=== PATIENT | male | born 1955 | race Caucasian/White ===

== ENCOUNTER 2017-04-26 15:59 | Emergency (ER) | payer BC ==
[2017-04-26 16:14] VITALS: O2SAT 97
--- NOTE | 2017-04-26 16:36 | ERPHSYRPT ---
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 Triage Nursing Assessment: pt pink, warm, moist. [id number] laceration noted to left thumb. no bleeding at this time. 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 no active bleeding at present, patient is unable to move thumb in all direction. Occurred: just prior to arrival Method of Injury: incised Quality: constant Severity of Pain-Max: mild Severity of Pain-Current: mild Extremities Pain Location: thumb: left Modifying Factors: Improves With: nothing Associated Symptoms: none Allergies/Adverse Reactions: No Known Drug Allergies Allergy (Verified 02/20/14 23:44) Home Medications: Escitalopram Oxalate 10 mg [Lexapro 10 MG] 5 mg PO DAILY 02/19/14 [History] Methadone HCl 10 mg [DOLOPHINE 10MG Tablet] 10 mg PO TIDPRN PRN 02/20/14 [ History] Carvedilol 6.25 mg [Coreg 6.25 MG] 6.25 mg PO BID 04/26/17 [History] Hx Tetanus, Diphtheria Vaccination/Date Given: Yes (unknown) Hx Influenza Vaccination/Date Given: Yes Hx Pneumococcal Vaccination/Date Given: No Immunizations Up to Date: Yes - Past Medical History Pertinent Past Medical History: Yes Cardiac History: Hypertension Musculoskeletal History: Other 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 - Past Surgical History Past Surgical History: Yes Musculoskeletal: Orthopedic Surgery Other Surgical History: skin grafts - Social History Smoking Status: Former smoker Exposure to second hand smoke: No Drug Use: none Patient Lives Alone: Yes - Nursing Vital Signs Nursing Vital Signs: Initial Vital Signs Temperature 99.0 F Temperature Source Oral Pulse Rate 62 Respiratory Rate 20 Blood Pressure [] 129/81 Pain Intensity 0 - Physical Exam General Appearance: no apparent distress Hand Exam: deformity, laceration, limited ROM (left thumb, unable to extend), soft tissue tenderness, swelling SpO2: 97 - Course Nursing assessment & vital signs reviewed: Yes - Radiology Exams Hand X-ray Interpretation: Reviewed by me, Negative, No Fracture, No Subluxation Ordered Tests: Active Orders 24 hr Category Date Time Status HAND (MINIMUM 3 VIEWS) Stat Exams 04/26/17 16:09 Taken Medication Summary Discontinued Medications Generic Name Dose Route Start Last Admin Trade Name Warren PRN Reason Stop Dose Admin Diphtheria/Tetanus/Acell Pertussis 0.5 ml 04/26/17 17:01 04/26/17 17:02 Adacel Vial IM 04/26/17 17:02 0.5 ml .ONCE ONE Administration Diphtheria/Tetanus/Acell Pertussis Confirm 04/26/17 17:01 Adacel Vial Administered 04/26/17 17:02 Dose 0.5 ml IM .STK-MED ONE Ketorolac Tromethamine Confirm 04/26/17 16:39 Toradol 30 Mg Injection Administered 04/26/17 16:40 Dose 60 mg .ROUTE .STK-MED ONE Ketorolac Tromethamine 60 mg 04/26/17 16:40 04/26/17 16:42 Toradol 30 Mg Injection IM 04/26/17 16:41 60 mg STAT ONE Administration - Progress Progress: unchanged Discussed with Dr.: Other (Dr Harper at [facility] trauma center- Patient is going to [facility] ER via private car,) Will see patient in: other ([facility] ER) Counseled pt/family regarding: diagnosis, need for follow-up - Departure Time of Disposition: 17:08 Departure Disposition: Transfer (to [facility] for further care) Clinical Impression: Injury of tendon of left hand Qualifiers: Encounter type: initial encounter Qualified Code(s): S66.902A - Unspecified injury of unspecified muscle, fascia and tendon at wrist and hand level, left hand, initial encounter Condition: Stable Critical Care Time: Yes Critical Care Time(excluding separately billable procedures): 30-74 minutes Referrals: CHARLES LI [Primary Care Provider] - Instructions: Care for a Laceration After Repair
[2017-04-26] MEDS ORDERED: TORAdol 30 mg Injection ONE (16:39)
[2017-04-26] MEDS ORDERED: TORAdol 30 mg Injection IM ONE (16:40)
[2017-04-26] MEDS ORDERED: Adacel Vial IM ONE ×2 (17:01)
[2017-04-26] MEDS ORDERED: KEFZOL 1 GM IM ONE (17:16)
[2017-04-26] MEDS ORDERED: KEFZOL 1 GM ONE (17:17)
[2017-04-26 17:29] VITALS: BP 120/70; PULSE 56
--- NOTE | 2017-04-26 20:56 | XRAY ---
Indication: Thumb laceration. Comparison: None 3 views of the left hand demonstrates mild first MCP degenerative changes and adjacent soft tissue laceration. No other bony, articular, or soft tissue abnormalities.
== END 2017-04-26 17:29 | disposition short-term general hospital (02) ==
LOC: ED 15:59
DX: S66.822A Laceration of other specified muscles, fascia and tendons at wrist and hand level, left hand, initial encounter (principal); W31.89XA Contact with other specified machinery, initial encounter
CPT/HCPCS: 73130; 90471; 90715; 96372; 99285; J0690; J1885

== ENCOUNTER 2021-02-21 19:04 | Emergency (ER) | payer MEDICARE ==
[2021-02-21] MEDS ORDERED: D50W 50 ml Abboject IV ONE ×2 (19:12→19:13)
[2021-02-21 19:42] LABS: Absolute Neutrophil Ct (ANC) 4.95 (1.4-6.9); BASOPHIL % 0.4 % (0.0-0.4); Basophil (Absolute #) 0.03 (0-0.4); Eosinophil % 0.5 % (0.00-5.0); Eosinophil (Absolute #) 0.04 (0-0.5); Hematocrit 47.6 % (42-50); Hemoglobin 15.8 gm/dl (12.5-18.0); Lymphocyte (Absolute #) 1.99 (1.0-4.6); Lymphocytes % 25.7 % (24.0-44.0); Mean Cell Volume 87.7 fl (78-100); Mean Corpuscular Hemoglobin 29.1 pg (26-32); Mean Corpuscular Hgb Concent. 33.2 g/dl (32-36); Mean Platelet Volume 10.2 fl (7.5-11.0); Monocyte (Absolute #) 0.74 (0.0-1.3); Monocytes % 9.5 % (0.0-12.0); Neutrophil % 63.9 % (36.0-66.0); Platelet Count 248 K/mm3 (150-450); Red Blood Count 5.43 M/mm3 (4.1-5.6); White Blood Count 7.8 K/mm3 (4.0-10.5)
[2021-02-21 20:11] LABS: ALBUMIN 4.9 g/dL (3.5-5.0); ALKALINE PHOSPHATASE 97 U/L (38-126); ANION GAP 19.3 MEQ/L (5-15); BLOOD UREA NITROGEN 12 mg/dL (9-20); CHLORIDE 101 mmol/L (98-107); Calcium 10.1 mg/dL (8.4-10.2); Carbon Dioxide 23 mmol/L (22-30); Creatinine 1 0.77 mg/dL (0.66-1.25); EST GLOMERULAR FILTRATION RATE > 60.0 ML/MIN; ETHYL ALCOHOL < 10 mg/dL (0-10); Glucose 60 mg/dL (74-106); MAGNESIUM 2.3 mg/dL (1.6-2.3); NT PRO BNP 120 pg/mL (0-900); Potassium 3.1 mmol/L (3.5-5.1); SGOT/AST 27 U/L (17-59); SGPT/ALT 36 U/L (0-50); SODIUM 140 mmol/L (137-145); Total Protein 7.7 g/dL (6.3-8.2)
[2021-02-21 20:32] LABS: Appearance SLIGHTLY CLOUDY (CLEAR); Bilirubin NEGATIVE (NEGATIVE); Blood SMALL Ery/ul (0-5); Glucose NEGATIVE (NEGATIVE); Ketones NEGATIVE (NEGATIVE); Leukocyte Esterase NEGATIVE (NEGATIVE); Mucus SLIGHT /HPF (NEGATIVE); Nitrite NEGATIVE (NEGATIVE); Protein,Urine Dip 30 (Negative); Urobilinogen NEGATIVE mg/dL (0-1); WBC 0-2 /HPF (0-5)
--- NOTE | 2021-02-21 20:44 | ERPHSYRPT ---
- History of Present Illness Time Seen by Provider: 02/21/21 19:10 Source: patient Exam Limitations: no limitations Patient Subjective Stated Complaint: "I think i had a seizure." Triage Nursing Assessment: EMS reported a near syncopal episode with seizure like activity per the on scene. EMS reported confusion upon arrival with improvement post oral glucose. Patient presented alert et oriented with skin pale/diaphoretic. Denied headache, dizziness, visual/auditory disturbances, chest pain, shortness of breath. reported that the patient was alert at home when he had a near syncopal episode and his body shook. She said the patient fell backwards into the couch and did not strike his head or fully lose consciousness. Head atraumatic normocephalic. Pupils 3mm brisk direct/consensual reation to light. Neck supple non-tender without JVD/bruits/thrills. Symmetrical chest expansion. Heart tones S1/S2 regular rate and rhythm. Lungs vesicular with adequate airflow. Abdomen soft non-distened without palpable masses. Peripheral pulses +2 bilateral. No noted unilateral neurological deficits. Physician History: Patient is a 66-year-old male presents to our emergency department via EMS for evaluation of seizure. Patient was at home with his significant other. She states that patient jerked backwards became unresponsive and started to shake. Patient later had drool coming out on the side of his mouth. She called 911. Upon their arrival patient was hypoglycemic at 56. Patient was somewhat confuse d. Patient states he had a seizure back in July. Patient went to the hospital at that time. He was worked up and discharged home. Patient states he does not know the cause of the seizure and at this point neither does his primary care doctor according to patient. Patient otherwise feels well. No associated chest pain or shortness of breath. No nausea vomiting or diaphoresis. Patient denies fevers no neck pain photophobia. Patient has no meningeal signs. Patient states he drinks vodka regularly but denies being an alcoholic. CAGE questions negative. Case Timing/Duration: today Severity: moderate Character of Deficits: other (Patient confused/postictal.) Deficits: no difficulties Baseline/Normal Cognition: alert oriented x 3 Current Cognition: alert oriented x 3 (Patient mental status significantly improved now versus status upon EMS initial evaluation.) Baseline Gait: walks w/o assistance Associated Symptoms: denies symptoms Allergies/Adverse Reactions: No Known Drug Allergies Allergy (Verified 02/21/21 19:19) Home Medications: Escitalopram Oxalate 10 mg [Lexapro 10 MG] 5 mg PO DAILY 02/19/14 [History] Methadone HCl 10 mg [DOLOPHINE 10MG Tablet] 10 mg PO TIDPRN PRN 02/20/14 [History] Apixaban [Eliquis] 1 tab PO BID 02/21/21 [History] Atorvastatin Calcium [Lipitor 40Mg] 1 tab PO DAILY 02/21/21 [History] Losartan Potassium 50 mg [Cozaar 50 MG] 1 tab PO DAILY 02/21/21 [History] Hx Tetanus, Diphtheria Vaccination/Date Given: Yes (unknown) Hx Influenza Vaccination/Date Given: Yes Hx Pneumococcal Vaccination/Date Given: No Travel Risk - International Travel Have you traveled outside of the country in past 3 weeks: No - Coronavirus Screening Are you exhibiting any of the following symptoms?: No Close contact with a COVID-19 positive Pt in past 14-21 Days: No - Vaccine Status Have you recieved a Covid-19 vaccination: Yes 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: [employer] - Vaccination Dates Date of 2cond Vaccination (if applicable): 02/04/21 - Review of Systems Constitutional: No Symptoms, No Fever, No Chills Eyes: No Symptoms Ears, Nose, & Throat: No Symptoms Respiratory: No Symptoms, No Cough, No Dyspnea Cardiac: No Symptoms, No Chest Pain, No Edema, No Syncope Abdominal/Gastrointestinal: No Symptoms, No Abdominal Pain, No Nausea, No Vomiting, No Diarrhea Genitourinary Symptoms: No Symptoms, No Dysuria Musculoskeletal: No Symptoms, No Back Pain, No Neck Pain Skin: No Symptoms, No Rash Neurological: No Symptoms, No Dizziness, No Focal Weakness, No Sensory Changes Psychological: No Symptoms Endocrine: No Symptoms Hematologic/Lymphatic: No Symptoms Immunological/Allergic: No Symptoms All Other Systems: Reviewed and Negative - Past Medical History Pertinent Past Medical History: Yes Cardiac History: High Cholesterol, Hypertension Respiratory History: Pulmonary Embolism Musculoskeletal History: Other 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 - Past Surgical History Past Surgical History: Yes Musculoskeletal: Orthopedic Surgery Other Surgical History: skin grafts - Social History Smoking Status: Former smoker Exposure to second hand smoke: No Drug Use: none Patient Lives Alone: Yes - Nursing Vital Signs Nursing Vital Signs: Initial Vital Signs Temperature 98.8 F 02/21/21 19:04 Pulse Rate 84 02/21/21 19:04 Respiratory Rate 16 02/21/21 19:04 Blood Pressure 130/70 02/21/21 19:04 O2 Sat by Pulse Oximetry 95 02/21/21 19:04 Pain Scale Pain Intensity 0 - [place] Coma Scale Best Eye Response ([place]): (4) open spontaneously Best Verbal Response ([place]): (5) oriented Best Motor Response ([place]): (6) obeys commands Eleanor Total: 15 - Physical Exam General Appearance: no apparent distress, alert Eye Exam: bilateral eye: normal inspection, PERRL, EOMI Ears, Nose, Throat Exam: normal ENT inspection, moist mucous membranes Neck Exam: normal inspection, non-tender, supple Respiratory: normal breath sounds, lungs clear, airway intact, No respiratory distress Cardiovascular: regular rate/rhythm, No edema Gastrointestinal: soft, normal bowel sounds, No tenderness, No distention Back Exam: normal inspection Extremity Exam: normal inspection, normal range of motion, pelvis stable, No pedal edema 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, 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 Exam: normal hearing, normal speech, PERRL, tongue midline, No abnormal eye position, No abnormal gag reflex, No abnormal pupil position, No abnormal speech, No facial asymmetry, No facial droop, No facial paresthesias, No facial weakness, No gaze palsy, No hearing deficit (R), No hearing deficit (L), No tongue deviation to R, No tongue deviation to L Coordination/Gait: normal finger to nose, normal gait, normal cerebellar function Motor/Sensory: no motor deficit Skin Exam: normal color, warm, dry, No rash SpO2 Interpretation: normal SpO2: 98 O2 Delivery: Room Air - Course Nursing assessment & vital signs reviewed: Yes EKG Interpreted by Me: RATE (76), Sinus Rhythm, NORMAL AXIS, NORMAL INTERVALS - CT Exams Head CT Interpretation: Tele-radiologist Report (No comparisons. Negative CT head.) Ordered Tests: Active Orders 24 hr Category Date Time Status Jig Filler STAT Care 02/21/21 19:31 Active EKG-ER Only STAT Care 02/21/21 19:30 Active IV Insertion STAT Care 02/21/21 19:30 Active Pulse Oximetry (ED) STAT Care 02/21/21 19:30 Active HEAD WITHOUT CONTRAST [CT] Stat Exams 02/21/21 19:48 Taken BLOOD CULTURE Stat Lab 02/21/21 19:50 Received CBC W DIFF Stat Lab 02/21/21 19:15 Completed CMP Stat Lab 02/21/21 19:15 Completed D-DIMER QUANTITATIVE Stat Lab 02/21/21 20:00 Completed ETHYL ALCOHOL Stat Lab 02/21/21 19:15 Completed Lactic Acid Stat Lab 02/21/21 19:45 Completed MAGNESIUM Stat Lab 02/21/21 19:15 Completed NT PRO BNP Stat Lab 02/21/21 19:15 Completed POCT GLUCOSE Stat Lab 02/21/21 20:09 Completed TROPONIN Q3H Lab 02/21/21 19:15 Completed TROPONIN Q3H Lab 02/21/21 22:45 Ordered TROPONIN Q3H Lab 02/22/21 01:45 Ordered TROPONIN Q3H Lab 02/22/21 04:45 Ordered TROPONIN Q3H Lab 02/22/21 07:45 Ordered UA W/RFX UR CULTURE Stat Lab 02/21/21 19:54 Received Urine Triage Profile Stat Lab 02/21/21 19:54 Received Medication Summary Discontinued Medications Generic Name Dose Route Start Last Admin Trade Name Freq PRN Reason Stop Dose Admin Dextrose 25 ml 02/21/21 19:12 02/21/21 19:17 D50w 50 Ml Abboject IV 02/21/21 19:13 25 ml STAT ONE Administration Dextrose Confirm 02/21/21 19:13 D50w 50 Ml Abboject Administered 02/21/21 19:14 Dose 50 ml IV .Spire [place]-Lexdir ONE Lab/Rad Data: Laboratory Result Diagrams 02/21/21 19:15 02/21/21 19:15 Laboratory Results 02/21/21 02/21/21 02/21/21 Range/Units 20:09 20:00 19:45 WBC (4.0-10.5) K/mm3 RBC (4.1-5.6) M/mm3 Hgb (12.5-18.0) gm/dl Hct (42-50) % MCV (78-100) fl MCH (26-32) pg MCHC (32-36) g/dl RDW (11.5-14.0) % Plt Count (150-450) K/mm3 MPV (7.5-11.0) fl Gran % (36.0-66.0) % Eos # (Auto) (0-0.5) Absolute Lymphs (auto) (1.0-4.6) Absolute Monos (auto) (0.0-1.3) Lymphocytes % (24.0-44.0) % Monocytes % (0.0-12.0) % Eosinophils % (0.00-5.0) % Basophils % (0.0-0.4) % Absolute Granulocytes (1.4-6.9) Basophils # (0-0.4) D-Dimer < 215 L (215-500) ng/mL Sodium (137-145) mmol/L Potassium (3.5-5.1) mmol/L Chloride (98-107) mmol/L Carbon Dioxide (22-30) mmol/L Anion Gap (5-15) MEQ/L BUN (9-20) mg/dL Creatinine (0.66-1.25) mg/dL Estimated GFR ML/MIN Glucose (74-106) mg/dL POC Glucometer 72 L (74 to 106) mg/dL Lactic Acid 8.4 H (0.4-2.0) Calcium (8.4-10.2) mg/dL Magnesium (1.6-2.3) mg/dL Total Bilirubin (0.2-1.3) mg/dL AST (17-59) U/L ALT (0-50) U/L Alkaline Phosphatase (38-126) U/L Troponin I (0.000-0.034) ng/mL NT-Pro-B Natriuret Pep (0-900) pg/mL Serum Total Protein (6.3-8.2) g/dL Albumin (3.5-5.0) g/dL Ethyl Alcohol (0-10) mg/dL 02/21/21 02/21/21 02/21/21 Range/Units 19:15 19:15 19:15 WBC 7.8 (4.0-10.5) K/mm3 RBC 5.43 (4.1-5.6) M/mm3 Hgb 15.8 (12.5-18.0) gm/dl Hct 47.6 (42-50) % MCV 87.7 (78-100) fl MCH 29.1 (26-32) pg MCHC 33.2 (32-36) g/dl RDW 13.0 (11.5-14.0) % Plt Count 248 (150-450) K/mm3 MPV 10.2 (7.5-11.0) fl Gran % 63.9 (36.0-66.0) % Eos # (Auto) 0.04 (0-0.5) Absolute Lymphs (auto) 1.99 (1.0-4.6) Absolute Monos (auto) 0.74 (0.0-1.3) Lymphocytes % 25.7 (24.0-44.0) % Monocytes % 9.5 (0.0-12.0) % Eosinophils % 0.5 (0.00-5.0) % Basophils % 0.4 (0.0-0.4) % Absolute Granulocytes 4.95 (1.4-6.9) Basophils # 0.03 (0-0.4) D-Dimer (215-500) ng/mL Sodium 140 (137-145) mmol/L Potassium 3.1 L (3.5-5.1) mmol/L Chloride 101 (98-107) mmol/L Carbon Dioxide 23 (22-30) mmol/L Anion Gap 19.3 H (5-15) MEQ/L BUN 12 (9-20) mg/dL Creatinine 0.77 (0.66-1.25) mg/dL Estimated GFR > 60.0 ML/MIN Glucose 60 L (74-106) mg/dL POC Glucometer (74 to 106) mg/dL Lactic Acid (0.4-2.0) Calcium 10.1 (8.4-10.2) mg/dL Magnesium 2.3 (1.6-2.3) mg/dL Total Bilirubin 1.30 (0.2-1.3) mg/dL AST 27 (17-59) U/L ALT 36 (0-50) U/L Alkaline Phosphatase 97 (38-126) U/L Troponin I < 0.012 (0.000-0.034) ng/mL NT-Pro-B Natriuret Pep 120 (0-900) pg/mL Serum Total Protein 7.7 (6.3-8.2) g/dL Albumin 4.9 (3.5-5.0) g/dL Ethyl Alcohol < 10 (0-10) mg/dL - Progress Progress: improved Progress Note: Patient reassessed. Neurologic status back to patient's baseline. CT head negative. Work-up reveals hypoglycemia. Patient also has hypokalemia. These findings may be due to excessive alcohol use. D-dimer negative. current alcohol is negative. We advised admission for further evaluation of seizure and hypoglycemia. Patient refused. 02/21/21 20:51 Patient is of sound mind. Patient is appropriate to make informed and independent medical decisions. Patient understands that leaving AGAINST MEDICAL ADVICE can result in delayed diagnosis, increased risk of morbidity, mortality, short and long-term disability including . In spite of these risks, patient has decided to leave AGAINST MEDICAL ADVICE. Patient understands that he may return to our ED at any point if he or she reconsiders. Patient agrees to follow-up with his or her primary care doctor within 48 hours for reevaluation. Patient voices no other complaints or concerns at this time. We will release patient AGAINST MEDICAL ADVICE per their request. 02/21/21 20:54 02/21/21 20:55 Counseled pt/family regarding: lab results, diagnosis, need for follow-up, rad results - Departure Departure Disposition: AMA Clinical Impression: Hypokalemia, Hypoglycemia, Seizure, High anion gap metabolic acidosis, Lactic acidosis Condition: Stable Critical Care Time: No Referrals: TYRONE HAMEED [Primary Care Provider] - Additional Instructions: Discharge/Care Plan GELACIO MENDES was seen on 02/21/21 in the Emergency Room. The patient was counseled regarding Diagnosis,Lab results, Imaging studies, need for follow up a nd when to return to the Emergency Room. Prescriptions given: Discharge Note I have spoken with the patient and/or caregivers. I have explained the patient's condition, diagnosis and treatment plan based on the information available to me at this time. I have answered the patient's and/or caregiver's questions and addressed any concerns. The patient and/or caregivers have as good understanding of the patient's diagnosis, condition and treatment plan as can be expected at this point. The vital signs have been stable. The patient's condition is stable and appropriate for discharge from the emergency department. The patient will pursue further outpatient evaluation with the primary care physician or other designated or consulting physician as outlined in the discharge instructions. The patient and/or caregivers are agreeable to this plan of care and follow-up instructions have been explained in detail. The patient and/or caregivers have received these instruction. The patient/and or caregivers are aware that any significant change in condition or worsening of symptoms should prompt an immediate return to this or the closest emergency department or call 911.
[2021-02-21 20:53] LABS: Amphetamine,Urine NEGATIVE (NEGATIVE); Barbiturate,Urine NEGATIVE (NEGATIVE); Benzodiazepine,Urine POSITIVE (NEGATIVE); Cocaine,Urine NEGATIVE (NEGATIVE); Methadone,Urine POSITIVE (NEGATIVE); Opiate,Urine NEGATIVE (NEGATIVE); PCP,Urine NEGATIVE (NEGATIVE); THC,Urine NEGATIVE (NEGATIVE)
[2021-02-21] MEDS ORDERED: Klor Con 10 MEQ PO ONE ×2 (20:53→21:02)
[2021-02-21 21:29] VITALS: BP 138/86; PULSE 81; O2SAT 95
--- NOTE | 2021-02-22 08:40 | XRAY ---
Indication: Acute mental status change. Possible seizure with head injury. Multiple contiguous axial images obtained through the head without contrast. Comparison: None Age-appropriate global atrophy. No acute intracranial hemorrhage, abnormal extra-axial fluid collection, or mass effect. Fourth ventricle is midline without hydrocephalus. Gordon-white matter differentiation preserved. Bony calvarium intact. Minimal mucosal thickening of both ethmoid and right maxillary sinuses. Mastoid air cells are clear. Impression: Minimal paranasal sinus disease. Remaining CT head without contrast exam is negative.
== END 2021-02-21 21:17 | disposition left against medical advice (07) ==
LOC: ED 19:04
DX: E87.6 Hypokalemia (principal); E16.2 Hypoglycemia, unspecified; R56.9 Unspecified convulsions; E87.2 Acidosis; Z79.899 Other long term (current) drug therapy; I10 Essential (primary) hypertension; E78.00 Pure hypercholesterolemia, unspecified; Z86.718 Personal history of other venous thrombosis and embolism
CPT/HCPCS: 36000; 36415; 70450; 80053; 80307; 81001; 82947; 83605; 83735; 83880; 84484; 85025; 85379; 87040; 93005; 93041; 94760; 96374; 99284; G0480; A9270-GY

== ENCOUNTER 2025-08-02 15:42 | Emergency (ER) | payer MEDICARE ==
--- NOTE | 2025-08-02 16:02 | ERPHSYRPT ---
- History of Present Illness Time Seen by Provider: 08/02/25 15:55 Source: patient Physician History: Patient presents for 2 weeks of intermittent sharp or pressure type pain in his right lower quadrant. No flank pain. He reports a history of stones and passed a stone several days ago. He reports he had difficulty voiding that day with some blood in his urine. He denies any urinary symptoms at this time. He has had no nausea vomiting or diarrhea. No fever or chills. Had a good appetite. He is presently pain-free on arrival. Allergies/Adverse Reactions: No Known Drug Allergies Allergy (Verified 08/02/25 16:05) Home Medications: Escitalopram Oxalate [Lexapro 10 MG] 5 mg PO DAILY 02/19/14 [History] Methadone HCl 10 mg [DOLOPHINE 10MG Tablet] 10 mg PO TID 02/20/14 [History] Apixaban [Eliquis] 1 tab PO BID 02/21/21 [History] Atorvastatin Calcium [Lipitor 40Mg] 1 tab PO DAILY 02/21/21 [History] Losartan Potassium 50 mg [Cozaar 50 MG] 1 tab PO DAILY 02/21/21 [History] Hx Tetanus, Diphtheria Vaccination/Date Given: Yes (unknown) Hx Influenza Vaccination/Date Given: Yes Hx Pneumococcal Vaccination/Date Given: No - Review of Systems Constitutional: No Fever, No Chills Eyes: No Symptoms Ears, Nose, & Throat: No Symptoms Respiratory: No Cough, No Dyspnea Cardiac: No Chest Pain, No Edema, No Syncope Abdominal/Gastrointestinal: Abdominal Pain, No Nausea, No Vomiting, No Diarrhea Genitourinary Symptoms: Hematuria, No Dysuria, No Frequency, No Urinary Retention, No Flank Pain Musculoskeletal: No Back Pain, No Neck Pain Skin: No Rash Neurological: No Dizziness, No Focal Weakness, No Sensory Changes Psychological: No Symptoms Endocrine: No Symptoms All Other Systems: Reviewed and Negative - Past Medical History Pertinent Past Medical History: Yes Cardiac History: High Cholesterol, Hypertension Respiratory History: Pulmonary Embolism Musculoskeletal History: Other 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 - Past Surgical History Past Surgical History: Yes Musculoskeletal: Orthopedic Surgery Other Surgical History: skin grafts - Social History Smoking Status: Former smoker Exposure to second hand smoke: No Drug Use: none Patient Lives Alone: Yes - Nursing Vital Signs Nursing Vital Signs: Initial Vital Signs Temperature 97 F 08/02/25 15:43 Pulse Rate 82 08/02/25 15:43 Respiratory Rate 16 08/02/25 15:43 Blood Pressure 101/71 08/02/25 15:43 O2 Sat by Pulse Oximetry 100 08/02/25 15:43 Pain Scale Pain Intensity 7 - Physical Exam General Appearance: no apparent distress Respiratory Exam: normal breath sounds Cardiovascular Exam: regular rate/rhythm, normal heart sounds Gastrointestinal/Abdomen Exam: soft, other (Forts prior pain was right low pelvis but is nontender and without symptoms on arrival), No tenderness, No distention, No mass, No organomegaly Back Exam: normal inspection Extremity Exam: normal inspection Neurologic Exam: alert, oriented x 3 Lymphatic Exam: No adenopathy SpO2 Interpretation: normal Ordered Tests: Active Orders 24 hr Category Date Time Status ABDOMEN AND PELVIS W/0 CONTRAS [CT] Stat Exams 08/02/25 16:03 Completed BMP Stat Lab 08/02/25 16:00 Completed CBC W DIFF Stat Lab 08/02/25 16:00 Completed UA W/RFX UR CULTURE Stat Lab 08/02/25 17:15 Completed Lab/Rad Data: Laboratory Result Diagrams 08/02/25 16:00 08/02/25 16:00 Laboratory Results 08/02/25 08/02/25 08/02/25 Range/Units 17:15 16:00 16:00 WBC 7.7 (4.23-9.07) x10^3/uL RBC 4.37 L (4.63-6.08) x10^6/uL Hgb 12.8 L (13.7-17.5) g/dL Hct 38.7 L (40.1-51.0) % MCV 88.6 (79.0-92.2) fL MCH 29.3 (25.7-32.2) pg MCHC 33.1 (32.3-36.5) g/dL RDW 12.8 (11.6-14.4) % Plt Count 226 (163-337) x10^3/uL MPV 10.9 (9.4-12.4) fL Gran % 69.4 H (34.0-67.9) % Immature Gran % (Auto) 0.4 (0.001-0.429) % Nucleat RBC Rel Count 0.0 (0.00-0.2) % Eos # (Auto) 0.22 (0.04-0.54) x10^3/uL Immature Gran # (Auto) 0.03 (0.001-0.031) x10^3u/L Absolute Lymphs (auto) 1.66 (1.32-3.57) x10^3/uL Absolute Monos (auto) 0.37 (0.30-0.82) x10^3/uL Absolute Nucleated RBC 0.00 (0.00-0.012) x10^3u/L Lymphocytes % 21.6 L (21.8-53.1) % Monocytes % 4.8 L (5.3-12.2) % Eosinophils % 2.9 (0.8-7.0) % Basophils % 0.9 (0.2-1.2) % Absolute Granulocytes 5.35 (1.78-5.38) x10^3/uL Basophils # 0.07 (0.01-0.08) x10^3/uL Sodium 140 (135-145) mmol/L Potassium 3.4 L (3.5-5.1) mmol/L Chloride 107 (98-107) mmol/L Carbon Dioxide 24 (22-30) mmol/L Anion Gap 12.4 (5-15) MEQ/L BUN 13 (9-20) mg/dL Creatinine 0.82 (0.66-1.25) mg/dL Estimated GFR 95.7 ML/MIN Glucose 107 H (74-106) mg/dL Calcium 9.1 (8.4-10.2) mg/dL Urine Color Yellow (Yellow) Urine Appearance Clear (Clear) Urine pH 5.5 (4.6-8.0) Ur Specific [place] 1.015 (1.005-1.030) Urine Protein Negative (Negative) Urine Glucose (UA) Negative (Negative) mg/dL Urine Ketones Negative (Negative) Urine Blood Negative (Negative) Urine Nitrite Negative (Negative) Urine Bilirubin Negative (Negative) Urine Urobilinogen 0.2 (0.2) mg/dL Ur Leukocyte Esterase Negative (Negative) U Hyaline Cast (Auto) NONE SEEN (0-2) /LPF Urine Microscopic RBC 0-2 (0-5) /HPF Urine Microscopic WBC 0-2 (0-5) /HPF Ur Epithelial Cells None Seen (None Seen) /HPF Urine Bacteria None Seen (None Seen) /HPF Urine Culture Reflexed NO (NO) - Progress Progress: improved Progress Note: 08/02/25 17:18 [facility] [address] [facility], [address] [place], [place] [address] Name: GELACIO MENDES Attending Physician: CRISTELA SCHWARTZ IMAGING REPORT : 1955 Age: 70 Sex: M Location: ED Report #: [id number] Exam Date: 08/02/25 Status: REG ER Radiology #: Procedures: CT/ABDOMEN AND PELVIS W/0 CONTRAS Indication: Right lower pain 2 weeks. Multiple contiguous axial images obtained through the abdomen and pelvis without contrast using renal stone protocol. Comparison: November 28, 2019 Lung bases clear. Heart not enlarged. Left lower renal calyx demonstrates 4 new micro-calculi, largest 4 mm. No other renal calculus or evidence for obstructive uropathy in either system. Noncontrasted stomach and bowel loops appear nonobstructed again with normal appendix. Right lower quadrant demonstrates new tiny mesenteric nodes with stranding favoring adenitis. Again mildly distended gallbladder with multiple small cholesterol gallstones increased in number. Also new gallbladder sludge in the dependent portion. No free fluid/air. Remaining liver, gallbladder, pancreas, spleen, adrenal glands, kidneys, ureters, and bladder are unremarkable for noncontrast exam. Again minimal aortoiliac calcifications without AAA. Osseous structures intact again with minimal/mild degenerative changes throughout spine. New small fatty left inguinal hernia and new moderate fluid-filled right inguinal hernia. Impression: 1. New nonobstructing left renal micro-calculi. 2. New tiny right lower quadrant mesenteric nodes with stranding favoring mesenteric adenitis. 3. Increasing small cholesterol gallstones with new gallbladder sludge. Sonogram may yield further information if there remains clinical concern. 4. New fatty left inguinal and new fluid-filled right inguinal hernias. 5. Incidental chronic findings including arteriosclerotic disease and multilevel degenerative spondylosis. Reported by: DEBBI NEVAREZ DO Signed by: DEBBI NEVAREZ DO Signed date/time: 08/02/25 0387 Work did not show concerning cause for symptoms. No concerning findings on CT scan on the right side, possible mesenteric adenitis noted - Departure Departure Disposition: Home Clinical Impression: Mesenteric adenitis Condition: Good Critical Care Time: No Referrals: TYRONE HAMEED [Primary Care Provider, UNKNOWN] - Follow up/PCP as directed Instructions: Abdominal pain Additional Instructions: Small amount of inflammation around the bowel. This likely will improve on its own without specific therapy. You can add ibuprofen or Aleve to your pain regimen that you take at this time. There is no evidence of any infection or stones. Follow-up with your provider if not improved this week. For worsening symptoms such as fever vomiting or concerns
[2025-08-02 16:11] LABS: BASOPHIL % 0.9 % (0.2-1.2); Basophil (Absolute #) 0.07 x10^3/uL (0.01-0.08); Eosinophil (Absolute #) 0.22 x10^3/uL (0.04-0.54); Hematocrit 38.7 % (40.1-51.0); Hemoglobin 12.8 g/dL (13.7-17.5); IMMATURE GRAN # 0.03 x10^3u/L (0.001-0.031); IMMATURE GRAN % 0.4 % (0.001-0.429); Lymphocyte (Absolute #) 1.66 x10^3/uL (1.32-3.57); Mean Corpuscular Hemoglobin 29.3 pg (25.7-32.2); Mean Corpuscular Hgb Concent. 33.1 g/dL (32.3-36.5); Monocyte (Absolute #) 0.37 x10^3/uL (0.30-0.82); NUCLEATED RBC # 0.00 x10^3u/L (0.00-0.012); NUCLEATED RBC % 0.0 % (0.00-0.2); Platelet Count 226 x10^3/uL (163-337); Red Blood Count 4.37 x10^6/uL (4.63-6.08); White Blood Count 7.7 x10^3/uL (4.23-9.07)
[2025-08-02 16:28] LABS: Calcium 9.1 mg/dL (8.4-10.2); Carbon Dioxide 24.0 mmol/L (22-30); Creatinine 1 0.82 mg/dL (0.66-1.25); EST GLOMERULAR FILTRATION RATE 95.7 ML/MIN; Glucose 107.0 mg/dL (74-106); Potassium 3.4 mmol/L (3.5-5.1)
[2025-08-02 16:38] VITALS: TEMP 97
--- NOTE | 2025-08-02 17:10 | XRAY ---
Indication: Right lower pain 2 weeks. Multiple contiguous axial images obtained through the abdomen and pelvis without contrast using renal stone protocol. Comparison: November 28, 2019 Lung bases clear. Heart not enlarged. Left lower renal calyx demonstrates 4 new micro-calculi, largest 4 mm. No other renal calculus or evidence for obstructive uropathy in either system. Noncontrasted stomach and bowel loops appear nonobstructed again with normal appendix. Right lower quadrant demonstrates new tiny mesenteric nodes with stranding favoring adenitis. Again mildly distended gallbladder with multiple small cholesterol gallstones increased in number. Also new gallbladder sludge in the dependent portion. No free fluid/air. Remaining liver, gallbladder, pancreas, spleen, adrenal glands, kidneys, ureters, and bladder are unremarkable for noncontrast exam. Again minimal aortoiliac calcifications without AAA. Osseous structures intact again with minimal/mild degenerative changes throughout spine. New small fatty left inguinal hernia and new moderate fluid-filled right inguinal hernia. Impression: 1. New nonobstructing left renal micro-calculi. 2. New tiny right lower quadrant mesenteric nodes with stranding favoring mesenteric adenitis. 3. Increasing small cholesterol gallstones with new gallbladder sludge. Sonogram may yield further information if there remains clinical concern. 4. New fatty left inguinal and new fluid-filled right inguinal hernias. 5. Incidental chronic findings including arteriosclerotic disease and multilevel degenerative spondylosis.
[2025-08-02 17:24] LABS: Glucose, Urine Negative (Negative); Protein,Urine Dip Negative (Negative); RBC 0-2 /HPF (0-5); WBC 0-2 /HPF (0-5)
[2025-08-02 17:33] VITALS: O2SAT 98
[2025-08-02 17:52] VITALS: BP 110/76; PULSE 78; RESP 18
== END 2025-08-02 17:52 | disposition home or self-care (01) ==
LOC: ED 15:42
DX: I88.0 Nonspecific mesenteric lymphadenitis (principal); R10.31 Right lower quadrant pain; I10 Essential (primary) hypertension; Z79.01 Long term (current) use of anticoagulants; Z79.899 Other long term (current) drug therapy